=== PATIENT | male | born 1950 | race Caucasian/White ===

== ENCOUNTER 2020-04-12 11:33 | Inpatient (IN) ==
[2020-04-12] MEDS ORDERED: Simethicone 80 MG TAB.CHEW PO PRN (12:04)
[2020-04-12] MEDS ORDERED: polyethylene glycoL 3350 17 GM POWD.PACK PO PRN (12:04)
[2020-04-12] MEDS ORDERED: Dextrose Gel 15 GM/37.5 ML TUBE PO PRN ×2 (12:15)
[2020-04-12] MEDS ORDERED: *HR* Dextrose 50 % in Water (Vial) 50 ML VIAL IVP PRN (12:15)
[2020-04-12] MEDS ORDERED: D5% in Water 1,000 ML IVC PRN (12:15)
[2020-04-12] MEDS: *HR* Metformin 500 MG TABLET PO SCH (16:39)
[2020-04-12] MEDS: Insulin LISPRO 300 UNITS/3 ML VIAL SQ SCH (16:40)
[2020-04-13 07:25] LABS: BUN/Creatinine Ratio 20 (6-26); Blood Urea Nitrogen 18 mg/dL (8-23); Carbon Dioxide 32 mEq/L (23-29); Chloride 100 mEq/L (98-107); Glucose 133 mg/dL (70-105); Osmolality,Calculated 292 (280-300); Potassium 3.6 mEq/L (3.5-5.1); Sodium 139 mEq/L (136-145); eGFR For African Americans > 60 (> 60); eGFR For Non-African Americans > 60 (> 60)
[2020-04-13 07:26] LABS: Basophils # 0.1 K/mcL (0.0-0.2); Basophils % 0.7 %; Eosinophils # 0.3 K/mcL (0.0-0.6); Eosinophils % 2.8 %; Hematocrit 39.6 % (37.5-50.1); Hemoglobin 13.4 g/dL (12.9-16.9); Immature Granulocytes % 0.2 % (0-4); Lymphocytes # 2.2 K/mcL (0.6-4.6); Lymphocytes % 23.8 %; Mean Corpuscular HGB Conc 33.8 g/dL (31.6-35.5); Mean Corpuscular Hemoglobin 30.2 pg (28.0-33.3); Mean Corpuscular Volume 89.2 fL (83.0-100.0); Mean Platelet Volume 11.5 fL (9.4-12.4); Monocytes % 11.1 %; Neutrophils # 5.6 K/mcL (1.6-8.9); Platelet Count 279 K/mcL (140-400); Red Blood Count 4.44 M/mcL (4.19-5.50); Red Cell Distribution Width 12.5 % (11.5-14.5); Segmented Neutrophils % 61.4 %
[2020-04-13] MEDS: Insulin LISPRO 300 UNITS/3 ML VIAL SQ SCH ×3 (08:42→17:20)
[2020-04-13] MEDS: lisinopriL 5 MG TABLET PO SCH (08:44)
[2020-04-13] MEDS: Cholecalciferol (D-3) 1,000 UNIT (25MCG) TABLET PO SCH (08:44)
[2020-04-13] MEDS: Aspirin Enteric Coated 81 MG Tablet PO SCH (08:44)
[2020-04-13] MEDS: Multivit/Ca/Min/Fe/FA 1 TAB TABLET PO SCH (08:45)
[2020-04-13] MEDS: *HR* Glimepiride 2 MG TABLET PO SCH (08:45)
[2020-04-13] MEDS: *HR* Metformin 500 MG TABLET PO SCH ×2 (08:45→17:21)
[2020-04-14] MEDS: Insulin LISPRO 300 UNITS/3 ML VIAL SQ SCH ×3 (08:42→17:41)
[2020-04-14] MEDS: Multivit/Ca/Min/Fe/FA 1 TAB TABLET PO SCH (08:44)
[2020-04-14] MEDS: Cholecalciferol (D-3) 1,000 UNIT (25MCG) TABLET PO SCH (08:44)
[2020-04-14] MEDS: lisinopriL 5 MG TABLET PO SCH (08:44)
[2020-04-14] MEDS: *HR* Metformin 500 MG TABLET PO SCH ×2 (08:45→17:41)
[2020-04-14] MEDS: Aspirin Enteric Coated 81 MG Tablet PO SCH (08:45)
[2020-04-14] MEDS: *HR* Glimepiride 2 MG TABLET PO SCH (08:45)
[2020-04-15] MEDS: Insulin LISPRO 300 UNITS/3 ML VIAL SQ SCH ×3 (08:38→16:45)
[2020-04-15] MEDS: Aspirin Enteric Coated 81 MG Tablet PO SCH (08:40)
[2020-04-15] MEDS: *HR* Metformin 500 MG TABLET PO SCH ×2 (08:40→16:54)
[2020-04-15] MEDS: *HR* Glimepiride 2 MG TABLET PO SCH (08:41)
[2020-04-15] MEDS: lisinopriL 5 MG TABLET PO SCH (08:41)
[2020-04-15] MEDS: Cholecalciferol (D-3) 1,000 UNIT (25MCG) TABLET PO SCH (08:42)
[2020-04-15] MEDS: Multivit/Ca/Min/Fe/FA 1 TAB TABLET PO SCH ×2 (08:42→08:47)
[2020-04-16] MEDS: Insulin LISPRO 300 UNITS/3 ML VIAL SQ SCH ×3 (08:02→15:53)
[2020-04-16] MEDS: *HR* Glimepiride 2 MG TABLET PO SCH (08:54)
[2020-04-16] MEDS: *HR* Metformin 500 MG TABLET PO SCH ×2 (08:54→17:07)
[2020-04-16] MEDS: Cholecalciferol (D-3) 1,000 UNIT (25MCG) TABLET PO SCH (08:54)
[2020-04-16] MEDS: Multivit/Ca/Min/Fe/FA 1 TAB TABLET PO SCH (08:54)
[2020-04-16] MEDS: lisinopriL 5 MG TABLET PO SCH (08:54)
[2020-04-16] MEDS: Aspirin Enteric Coated 81 MG Tablet PO SCH (08:55)
[2020-04-17] MEDS: Aspirin Enteric Coated 81 MG Tablet PO SCH (08:36)
[2020-04-17] MEDS: Insulin LISPRO 300 UNITS/3 ML VIAL SQ SCH ×3 (08:36→16:19)
[2020-04-17] MEDS: Cholecalciferol (D-3) 1,000 UNIT (25MCG) TABLET PO SCH (08:36)
[2020-04-17] MEDS: Multivit/Ca/Min/Fe/FA 1 TAB TABLET PO SCH (08:37)
[2020-04-17] MEDS: lisinopriL 5 MG TABLET PO SCH (08:37)
[2020-04-17] MEDS: *HR* Glimepiride 2 MG TABLET PO SCH (08:37)
[2020-04-17] MEDS: *HR* Metformin 500 MG TABLET PO SCH ×2 (08:37→16:20)
[2020-04-18 06:29] LABS: Hematocrit 41.5 % (37.5-50.1); Hemoglobin 13.7 g/dL (12.9-16.9); Mean Corpuscular Hemoglobin 30.1 pg (28.0-33.3); Mean Corpuscular Volume 91.2 fL (83.0-100.0); Platelet Count 347 K/mcL (140-400); Red Blood Count 4.55 M/mcL (4.19-5.50); White Blood Count 9.2 K/mcL (4.3-11.1)
[2020-04-18 06:56] LABS: Alanine Aminotransferase 18 Units/L (7-52); Albumin 3.6 g/dL (3.5-5.7); Albumin/Globulin Ratio 1.2 (1.1-2.2); Alkaline Phosphatase 79 Units/L (34-104); Aspartate Amino Transferase 17 Units/L (13-39); BUN/Creatinine Ratio 28 (6-26); Bilirubin,Total 0.3 mg/dL (0.3-1.0); Blood Urea Nitrogen 28 mg/dL (8-23); Calcium 9.5 mg/dL (8.6-10.3); Carbon Dioxide 33 mEq/L (23-29); Chloride 101 mEq/L (98-107); Glucose 95 mg/dL (70-105); Magnesium 1.8 mg/dL (1.6-2.6); Osmolality,Calculated 293 (280-300); Potassium 4.1 mEq/L (3.5-5.1); Sodium 139 mEq/L (136-145); Total Protein 6.6 g/dL (6.4-8.9); eGFR For African Americans > 60 (> 60); eGFR For Non-African Americans > 60 (> 60)
[2020-04-18] MEDS: *HR* Metformin 500 MG TABLET PO SCH ×2 (08:52→16:57)
[2020-04-18] MEDS: Multivit/Ca/Min/Fe/FA 1 TAB TABLET PO SCH (08:52)
[2020-04-18] MEDS: Cholecalciferol (D-3) 1,000 UNIT (25MCG) TABLET PO SCH (08:52)
[2020-04-18] MEDS: Aspirin Enteric Coated 81 MG Tablet PO SCH (08:53)
[2020-04-18] MEDS: *HR* Glimepiride 2 MG TABLET PO SCH (08:53)
[2020-04-18] MEDS: lisinopriL 5 MG TABLET PO SCH (08:53)
[2020-04-18] MEDS: Insulin LISPRO 300 UNITS/3 ML VIAL SQ SCH ×3 (08:53→16:57)
[2020-04-19] MEDS: Insulin LISPRO 300 UNITS/3 ML VIAL SQ SCH ×3 (07:56→16:50)
[2020-04-19] MEDS: Multivit/Ca/Min/Fe/FA 1 TAB TABLET PO SCH (08:28)
[2020-04-19] MEDS: *HR* Glimepiride 2 MG TABLET PO SCH (08:28)
[2020-04-19] MEDS: Cholecalciferol (D-3) 1,000 UNIT (25MCG) TABLET PO SCH (08:28)
[2020-04-19] MEDS: *HR* Metformin 500 MG TABLET PO SCH ×2 (08:28→16:50)
[2020-04-19] MEDS: Aspirin Enteric Coated 81 MG Tablet PO SCH (08:28)
[2020-04-19] MEDS: lisinopriL 5 MG TABLET PO SCH (08:28)
[2020-04-20] MEDS: Insulin LISPRO 300 UNITS/3 ML VIAL SQ SCH ×3 (08:32→17:11)
[2020-04-20] MEDS: lisinopriL 5 MG TABLET PO SCH (08:33)
[2020-04-20] MEDS: Aspirin Enteric Coated 81 MG Tablet PO SCH (08:34)
[2020-04-20] MEDS: Cholecalciferol (D-3) 1,000 UNIT (25MCG) TABLET PO SCH (08:34)
[2020-04-20] MEDS: Multivit/Ca/Min/Fe/FA 1 TAB TABLET PO SCH (08:34)
[2020-04-20] MEDS: *HR* Glimepiride 2 MG TABLET PO SCH (08:34)
[2020-04-20] MEDS: *HR* Metformin 500 MG TABLET PO SCH ×2 (08:34→17:45)
[2020-04-21] MEDS: Insulin LISPRO 300 UNITS/3 ML VIAL SQ SCH ×3 (08:17→16:27)
[2020-04-21] MEDS: Aspirin Enteric Coated 81 MG Tablet PO SCH (08:17)
[2020-04-21] MEDS: Multivit/Ca/Min/Fe/FA 1 TAB TABLET PO SCH (08:17)
[2020-04-21] MEDS: *HR* Metformin 500 MG TABLET PO SCH ×2 (08:17→16:27)
[2020-04-21] MEDS: Cholecalciferol (D-3) 1,000 UNIT (25MCG) TABLET PO SCH (08:17)
[2020-04-21] MEDS: lisinopriL 5 MG TABLET PO SCH (08:17)
[2020-04-21] MEDS: *HR* Glimepiride 2 MG TABLET PO SCH (08:17)
[2020-04-22] MEDS: lisinopriL 5 MG TABLET PO SCH (08:24)
[2020-04-22] MEDS: *HR* Metformin 500 MG TABLET PO SCH ×2 (08:24→16:17)
[2020-04-22] MEDS: Aspirin Enteric Coated 81 MG Tablet PO SCH (08:25)
[2020-04-22] MEDS: Insulin LISPRO 300 UNITS/3 ML VIAL SQ SCH ×3 (08:25→16:18)
[2020-04-22] MEDS: Multivit/Ca/Min/Fe/FA 1 TAB TABLET PO SCH (08:25)
[2020-04-22] MEDS: *HR* Glimepiride 2 MG TABLET PO SCH (08:25)
[2020-04-22] MEDS: Cholecalciferol (D-3) 1,000 UNIT (25MCG) TABLET PO SCH (08:25)
[2020-04-23 07:20] LABS: Basophils # 0.1 K/mcL (0.0-0.2); Basophils % 0.9 %; Eosinophils # 0.2 K/mcL (0.0-0.6); Eosinophils % 2.3 %; Hematocrit 39.2 % (37.5-50.1); Hemoglobin 13.1 g/dL (12.9-16.9); Immature Granulocytes % 0.3 % (0-4); Lymphocytes # 2.5 K/mcL (0.6-4.6); Lymphocytes % 28.2 %; Mean Corpuscular HGB Conc 33.4 g/dL (31.6-35.5); Mean Corpuscular Hemoglobin 29.8 pg (28.0-33.3); Mean Corpuscular Volume 89.3 fL (83.0-100.0); Mean Platelet Volume 10.9 fL (9.4-12.4); Monocytes # 0.8 K/mcL (0.0-1.3); Monocytes % 9.1 %; Neutrophils # 5.2 K/mcL (1.6-8.9); Platelet Count 300 K/mcL (140-400); Red Blood Count 4.39 M/mcL (4.19-5.50); Red Cell Distribution Width 12.9 % (11.5-14.5); Segmented Neutrophils % 59.2 %; White Blood Count 8.8 K/mcL (4.3-11.1)
[2020-04-23 07:48] LABS: BUN/Creatinine Ratio 24 (6-26); Blood Urea Nitrogen 23 mg/dL (8-23); Calcium 9.1 mg/dL (8.6-10.3); Carbon Dioxide 30 mEq/L (23-29); Chloride 101 mEq/L (98-107); Glucose 86 mg/dL (70-105); Osmolality,Calculated 289 (280-300); Potassium 3.9 mEq/L (3.5-5.1); Sodium 138 mEq/L (136-145); eGFR For African Americans > 60 (> 60); eGFR For Non-African Americans > 60 (> 60)
[2020-04-23] MEDS: Insulin LISPRO 300 UNITS/3 ML VIAL SQ SCH ×3 (08:00→16:20)
[2020-04-23] MEDS: *HR* Metformin 500 MG TABLET PO SCH ×2 (08:01→16:20)
[2020-04-23] MEDS: Aspirin Enteric Coated 81 MG Tablet PO SCH (08:02)
[2020-04-23] MEDS: lisinopriL 5 MG TABLET PO SCH (08:02)
[2020-04-23] MEDS: Cholecalciferol (D-3) 1,000 UNIT (25MCG) TABLET PO SCH (08:02)
[2020-04-23] MEDS: *HR* Glimepiride 2 MG TABLET PO SCH (08:02)
[2020-04-23] MEDS: Multivit/Ca/Min/Fe/FA 1 TAB TABLET PO SCH (08:02)
[2020-04-24] MEDS: Multivit/Ca/Min/Fe/FA 1 TAB TABLET PO SCH (07:59)
[2020-04-24] MEDS: *HR* Metformin 500 MG TABLET PO SCH ×2 (07:59→16:56)
[2020-04-24] MEDS: *HR* Glimepiride 2 MG TABLET PO SCH (07:59)
[2020-04-24] MEDS: Cholecalciferol (D-3) 1,000 UNIT (25MCG) TABLET PO SCH (07:59)
[2020-04-24] MEDS: lisinopriL 5 MG TABLET PO SCH (07:59)
[2020-04-24] MEDS: Insulin LISPRO 300 UNITS/3 ML VIAL SQ SCH ×3 (08:00→16:46)
[2020-04-24] MEDS: Aspirin Enteric Coated 81 MG Tablet PO SCH (08:00)
[2020-04-25] MEDS: Insulin LISPRO 300 UNITS/3 ML VIAL SQ SCH ×3 (07:28→16:42)
[2020-04-25] MEDS: Aspirin Enteric Coated 81 MG Tablet PO SCH (09:53)
[2020-04-25] MEDS: Multivit/Ca/Min/Fe/FA 1 TAB TABLET PO SCH (09:53)
[2020-04-25] MEDS: lisinopriL 5 MG TABLET PO SCH (09:54)
[2020-04-25] MEDS: *HR* Glimepiride 2 MG TABLET PO SCH (09:54)
[2020-04-25] MEDS: Cholecalciferol (D-3) 1,000 UNIT (25MCG) TABLET PO SCH (09:54)
[2020-04-25] MEDS: *HR* Metformin 500 MG TABLET PO SCH ×2 (09:54→16:41)
[2020-04-26] MEDS: Insulin LISPRO 300 UNITS/3 ML VIAL SQ SCH ×3 (08:09→16:31)
[2020-04-26] MEDS: Aspirin Enteric Coated 81 MG Tablet PO SCH (08:10)
[2020-04-26] MEDS: *HR* Glimepiride 2 MG TABLET PO SCH (08:10)
[2020-04-26] MEDS: *HR* Metformin 500 MG TABLET PO SCH ×2 (08:10→16:33)
[2020-04-26] MEDS: Multivit/Ca/Min/Fe/FA 1 TAB TABLET PO SCH (08:10)
[2020-04-26] MEDS: Cholecalciferol (D-3) 1,000 UNIT (25MCG) TABLET PO SCH (08:10)
[2020-04-27] MEDS: Insulin LISPRO 300 UNITS/3 ML VIAL SQ SCH ×3 (08:41→16:14)
[2020-04-27] MEDS: *HR* Glimepiride 2 MG TABLET PO SCH (08:42)
[2020-04-27] MEDS: *HR* Metformin 500 MG TABLET PO SCH ×2 (08:43→16:15)
[2020-04-27] MEDS: Cholecalciferol (D-3) 1,000 UNIT (25MCG) TABLET PO SCH (08:43)
[2020-04-27] MEDS: Multivit/Ca/Min/Fe/FA 1 TAB TABLET PO SCH (08:43)
[2020-04-27] MEDS: Aspirin Enteric Coated 81 MG Tablet PO SCH (08:43)
[2020-04-27] MEDS: Furosemide 20 MG TABLET PO SCH (16:15)
[2020-04-27] MEDS: Doxycycline 100 MG CAPSULE PO SCH (20:09)
[2020-04-28 05:08] LABS: Basophils # 0.1 K/mcL (0.0-0.2); Basophils % 0.7 %; Eosinophils # 0.2 K/mcL (0.0-0.6); Eosinophils % 2.2 %; Hematocrit 38.7 % (37.5-50.1); Hemoglobin 12.7 g/dL (12.9-16.9); Immature Granulocytes % 0.2 % (0-4); Lymphocytes # 2.8 K/mcL (0.6-4.6); Lymphocytes % 33.7 %; Mean Corpuscular HGB Conc 32.8 g/dL (31.6-35.5); Mean Corpuscular Hemoglobin 29.5 pg (28.0-33.3); Mean Platelet Volume 11.1 fL (9.4-12.4); Monocytes # 0.8 K/mcL (0.0-1.3); Monocytes % 9.4 %; Neutrophils # 4.5 K/mcL (1.6-8.9); Platelet Count 306 K/mcL (140-400); Red Cell Distribution Width 13.2 % (11.5-14.5); Segmented Neutrophils % 53.8 %; White Blood Count 8.3 K/mcL (4.3-11.1)
[2020-04-28 06:06] LABS: BUN/Creatinine Ratio 19 (6-26); Blood Urea Nitrogen 19 mg/dL (8-23); Calcium 9.3 mg/dL (8.6-10.3); Carbon Dioxide 31 mEq/L (23-29); Chloride 100 mEq/L (98-107); Glucose 92 mg/dL (70-105); Osmolality,Calculated 288 (280-300); Potassium 3.8 mEq/L (3.5-5.1); Sodium 138 mEq/L (136-145); eGFR For African Americans > 60 (> 60); eGFR For Non-African Americans > 60 (> 60)
[2020-04-28] MEDS: Aspirin Enteric Coated 81 MG Tablet PO SCH (08:16)
[2020-04-28] MEDS: Multivit/Ca/Min/Fe/FA 1 TAB TABLET PO SCH (08:16)
[2020-04-28] MEDS: Furosemide 20 MG TABLET PO SCH (08:16)
[2020-04-28] MEDS: Doxycycline 100 MG CAPSULE PO SCH ×2 (08:16→20:16)
[2020-04-28] MEDS: *HR* Glimepiride 2 MG TABLET PO SCH (08:16)
[2020-04-28] MEDS: *HR* Metformin 500 MG TABLET PO SCH ×2 (08:16→16:31)
[2020-04-28] MEDS: Cholecalciferol (D-3) 1,000 UNIT (25MCG) TABLET PO SCH (08:16)
[2020-04-28] MEDS: Insulin LISPRO 300 UNITS/3 ML VIAL SQ SCH ×3 (08:17→16:31)
[2020-04-29] MEDS: Insulin LISPRO 300 UNITS/3 ML VIAL SQ SCH ×3 (07:31→16:27)
[2020-04-29] MEDS: Multivit/Ca/Min/Fe/FA 1 TAB TABLET PO SCH (07:35)
[2020-04-29] MEDS: Doxycycline 100 MG CAPSULE PO SCH ×2 (07:36→20:38)
[2020-04-29] MEDS: Furosemide 20 MG TABLET PO SCH (07:36)
[2020-04-29] MEDS: Cholecalciferol (D-3) 1,000 UNIT (25MCG) TABLET PO SCH (07:36)
[2020-04-29] MEDS: Aspirin Enteric Coated 81 MG Tablet PO SCH (07:36)
[2020-04-29] MEDS: *HR* Metformin 500 MG TABLET PO SCH ×2 (07:36→16:31)
[2020-04-29] MEDS: *HR* Glimepiride 2 MG TABLET PO SCH (07:36)
[2020-04-30] MEDS: Cholecalciferol (D-3) 1,000 UNIT (25MCG) TABLET PO SCH (09:02)
[2020-04-30] MEDS: *HR* Metformin 500 MG TABLET PO SCH ×2 (09:02→16:27)
[2020-04-30] MEDS: *HR* Glimepiride 2 MG TABLET PO SCH (09:02)
[2020-04-30] MEDS: Doxycycline 100 MG CAPSULE PO SCH ×2 (09:02→21:07)
[2020-04-30] MEDS: Multivit/Ca/Min/Fe/FA 1 TAB TABLET PO SCH (09:02)
[2020-04-30] MEDS: Aspirin Enteric Coated 81 MG Tablet PO SCH (09:02)
[2020-04-30] MEDS: Insulin LISPRO 300 UNITS/3 ML VIAL SQ SCH ×3 (09:03→16:27)
[2020-04-30] MEDS: Furosemide 20 MG TABLET PO SCH (09:08)
[2020-05-01] MEDS: *HR* Metformin 500 MG TABLET PO SCH ×2 (08:27→16:15)
[2020-05-01] MEDS: Furosemide 20 MG TABLET PO SCH (08:27)
[2020-05-01] MEDS: Doxycycline 100 MG CAPSULE PO SCH ×2 (08:27→19:52)
[2020-05-01] MEDS: *HR* Glimepiride 2 MG TABLET PO SCH (08:27)
[2020-05-01] MEDS: Aspirin Enteric Coated 81 MG Tablet PO SCH (08:27)
[2020-05-01] MEDS: Insulin LISPRO 300 UNITS/3 ML VIAL SQ SCH ×3 (08:27→16:15)
[2020-05-01] MEDS: Cholecalciferol (D-3) 1,000 UNIT (25MCG) TABLET PO SCH (08:27)
[2020-05-01] MEDS: Multivit/Ca/Min/Fe/FA 1 TAB TABLET PO SCH (08:27)
[2020-05-02] MEDS: Insulin LISPRO 300 UNITS/3 ML VIAL SQ SCH ×3 (08:33→16:20)
[2020-05-02] MEDS: Furosemide 20 MG TABLET PO SCH (08:34)
[2020-05-02] MEDS: Cholecalciferol (D-3) 1,000 UNIT (25MCG) TABLET PO SCH (08:34)
[2020-05-02] MEDS: *HR* Glimepiride 2 MG TABLET PO SCH (08:34)
[2020-05-02] MEDS: Doxycycline 100 MG CAPSULE PO SCH ×2 (08:35→20:02)
[2020-05-02] MEDS: *HR* Metformin 500 MG TABLET PO SCH ×2 (08:35→16:20)
[2020-05-02] MEDS: Aspirin Enteric Coated 81 MG Tablet PO SCH (08:35)
[2020-05-02] MEDS: Multivit/Ca/Min/Fe/FA 1 TAB TABLET PO SCH (08:35)
[2020-05-03] MEDS: Insulin LISPRO 300 UNITS/3 ML VIAL SQ SCH ×3 (07:14→16:07)
[2020-05-03] MEDS: Multivit/Ca/Min/Fe/FA 1 TAB TABLET PO SCH (08:16)
[2020-05-03] MEDS: *HR* Metformin 500 MG TABLET PO SCH ×2 (08:16→16:07)
[2020-05-03] MEDS: Doxycycline 100 MG CAPSULE PO SCH ×2 (08:16→20:57)
[2020-05-03] MEDS: Cholecalciferol (D-3) 1,000 UNIT (25MCG) TABLET PO SCH (08:16)
[2020-05-03] MEDS: Aspirin Enteric Coated 81 MG Tablet PO SCH (08:16)
[2020-05-03] MEDS: *HR* Glimepiride 2 MG TABLET PO SCH (08:16)
[2020-05-04] MEDS: *HR* Metformin 500 MG TABLET PO SCH ×2 (08:42→16:25)
[2020-05-04] MEDS: *HR* Glimepiride 2 MG TABLET PO SCH (08:42)
[2020-05-04] MEDS: Multivit/Ca/Min/Fe/FA 1 TAB TABLET PO SCH (08:42)
[2020-05-04] MEDS: Cholecalciferol (D-3) 1,000 UNIT (25MCG) TABLET PO SCH (08:42)
[2020-05-04] MEDS: Doxycycline 100 MG CAPSULE PO SCH ×2 (08:42→20:04)
[2020-05-04] MEDS: Aspirin Enteric Coated 81 MG Tablet PO SCH (08:42)
[2020-05-04] MEDS: Insulin LISPRO 300 UNITS/3 ML VIAL SQ SCH ×3 (08:43→16:25)
[2020-05-05] MEDS: Insulin LISPRO 300 UNITS/3 ML VIAL SQ SCH ×3 (07:28→16:57)
[2020-05-05 08:27] LABS: Basophils # 0.1 K/mcL (0.0-0.2); Basophils % 0.7 %; Eosinophils # 0.3 K/mcL (0.0-0.6); Eosinophils % 3.9 %; Hematocrit 39.3 % (37.5-50.1); Immature Granulocytes % 0.1 % (0-4); Lymphocytes # 2.1 K/mcL (0.6-4.6); Lymphocytes % 27.7 %; Mean Corpuscular HGB Conc 33.1 g/dL (31.6-35.5); Mean Corpuscular Hemoglobin 29.6 pg (28.0-33.3); Mean Corpuscular Volume 89.5 fL (83.0-100.0); Mean Platelet Volume 10.9 fL (9.4-12.4); Monocytes # 0.8 K/mcL (0.0-1.3); Monocytes % 11.1 %; Neutrophils # 4.2 K/mcL (1.6-8.9); Platelet Count 240 K/mcL (140-400); Red Blood Count 4.39 M/mcL (4.19-5.50); Red Cell Distribution Width 13.2 % (11.5-14.5); Segmented Neutrophils % 56.5 %; White Blood Count 7.5 K/mcL (4.3-11.1)
[2020-05-05 08:47] LABS: BUN/Creatinine Ratio 20 (6-26); Blood Urea Nitrogen 20 mg/dL (8-23); Calcium 9.3 mg/dL (8.6-10.3); Carbon Dioxide 30 mEq/L (23-29); Chloride 101 mEq/L (98-107); Glucose 88 mg/dL (70-105); Osmolality,Calculated 288 (280-300); Potassium 3.9 mEq/L (3.5-5.1); Sodium 138 mEq/L (136-145); eGFR For African Americans > 60 (> 60); eGFR For Non-African Americans > 60 (> 60)
[2020-05-05] MEDS: Cholecalciferol (D-3) 1,000 UNIT (25MCG) TABLET PO SCH (09:01)
[2020-05-05] MEDS: Aspirin Enteric Coated 81 MG Tablet PO SCH (09:01)
[2020-05-05] MEDS: *HR* Metformin 500 MG TABLET PO SCH ×2 (09:02→16:57)
[2020-05-05] MEDS: *HR* Glimepiride 2 MG TABLET PO SCH (09:02)
[2020-05-05] MEDS: Multivit/Ca/Min/Fe/FA 1 TAB TABLET PO SCH (09:02)
[2020-05-06] MEDS: Insulin LISPRO 300 UNITS/3 ML VIAL SQ SCH ×3 (07:22→16:14)
[2020-05-06] MEDS: Aspirin Enteric Coated 81 MG Tablet PO SCH (07:49)
[2020-05-06] MEDS: *HR* Glimepiride 2 MG TABLET PO SCH (07:49)
[2020-05-06] MEDS: Multivit/Ca/Min/Fe/FA 1 TAB TABLET PO SCH (07:49)
[2020-05-06] MEDS: *HR* Metformin 500 MG TABLET PO SCH ×2 (07:49→16:25)
[2020-05-06] MEDS: Cholecalciferol (D-3) 1,000 UNIT (25MCG) TABLET PO SCH (07:49)
[2020-05-07 07:39] VITALS: BP 121/78
[2020-05-07] MEDS: Multivit/Ca/Min/Fe/FA 1 TAB TABLET PO SCH (08:07)
[2020-05-07] MEDS: *HR* Metformin 500 MG TABLET PO SCH (08:07)
[2020-05-07] MEDS: Aspirin Enteric Coated 81 MG Tablet PO SCH (08:07)
[2020-05-07] MEDS: Cholecalciferol (D-3) 1,000 UNIT (25MCG) TABLET PO SCH (08:07)
[2020-05-07] MEDS: *HR* Glimepiride 2 MG TABLET PO SCH (08:07)
[2020-05-07] MEDS: Insulin LISPRO 300 UNITS/3 ML VIAL SQ SCH ×2 (08:07→11:58)
== END 2020-05-07 14:44 | disposition home health service (06) | DRG 945 ==
LOC: INPPIK 11:40
PROVIDERS: ADMIT Family Medicine; ATTEND Family Medicine

== ENCOUNTER 2021-05-24 16:29 | Inpatient (IN) ==
[2021-05-24] MEDS ORDERED: Dextrose Gel 15 GM/37.5 ML TUBE PO PRN ×2 (16:31)
[2021-05-24] MEDS ORDERED: *HR* Dextrose 50 % in Water (Syg) 50 ML SYRINGE IVP PRN (16:31)
[2021-05-24] MEDS ORDERED: D5% in Water 1,000 ML IVC PRN (16:31)
[2021-05-24] MEDS: Insulin LISPRO 300 UNITS/3 ML VIAL SUBQ SCH (20:58)
[2021-05-25 07:20] LABS: Basophils # 0.1 K/mcL (0.0-0.2); Basophils % 0.9 %; Eosinophils # 0.3 K/mcL (0.0-0.6); Eosinophils % 4.1 %; Hematocrit 35.6 % (37.5-50.1); Hemoglobin 11.1 g/dL (12.9-16.9); Immature Granulocytes % 0.3 % (0-4); Lymphocytes # 1.3 K/mcL (0.6-4.6); Lymphocytes % 18.9 %; Mean Corpuscular HGB Conc 31.2 g/dL (31.6-35.5); Mean Corpuscular Hemoglobin 28.1 pg (28.0-33.3); Mean Corpuscular Volume 90.1 fL (83.0-100.0); Mean Platelet Volume 10.1 fL (9.4-12.4); Monocytes # 0.8 K/mcL (0.0-1.3); Monocytes % 11.5 %; Neutrophils # 4.4 K/mcL (1.6-8.9); Platelet Count 368 K/mcL (140-400); Red Blood Count 3.95 M/mcL (4.19-5.50); Segmented Neutrophils % 64.3 %; White Blood Count 6.8 K/mcL (4.3-11.1)
[2021-05-25 07:47] LABS: BUN/Creatinine Ratio 28 (6-26); Blood Urea Nitrogen 22 mg/dL (8-23); Calcium 9.1 mg/dL (8.6-10.3); Carbon Dioxide 31 mEq/L (23-29); Chloride 98 mEq/L (98-107); Glucose 133 mg/dL (70-105); Osmolality,Calculated 285 (280-300); Sodium 135 mEq/L (136-145); eGFR For African Americans > 60 (> 60); eGFR For Non-African Americans > 60 (> 60)
[2021-05-25] MEDS ORDERED: *HR* Metformin 500 MG TABLET PO SCH (08:00)
[2021-05-25] MEDS: Insulin LISPRO 300 UNITS/3 ML VIAL SUBQ SCH ×4 (08:49→21:29)
[2021-05-25] MEDS: *HR* Metformin 500 MG TABLET PO SCH ×2 (08:50→17:20)
[2021-05-25] MEDS: Aspirin Enteric Coated 81 MG Tablet PO SCH (08:50)
[2021-05-25 13:05] LABS: Bilirubin,Urine Negative (Negative); Blood,Urine Moderate (Negative); Clarity,Urine Clear (Clear); Color,Urine Yellow (Yellow); Glucose,Urine (UA) >=1000 mg/dL (Normal); Ketones,Urine Negative (Negative); Leukocyte Esterase,Urine Trace (Negative); Nitrite,Urine Negative (Negative); Protein,Urine >=300 mg/dL (Neg-Trace); Specific Gravity,Urine >= 1.030 (1.010-1.025); Urobilinogen,Urine Normal (Normal)
[2021-05-26] MEDS: Aspirin Enteric Coated 81 MG Tablet PO SCH (08:47)
[2021-05-26] MEDS: *HR* Metformin 500 MG TABLET PO SCH ×2 (08:48→16:31)
[2021-05-26] MEDS: Insulin LISPRO 300 UNITS/3 ML VIAL SUBQ SCH ×4 (08:48→19:58)
[2021-05-27] MEDS: Insulin LISPRO 300 UNITS/3 ML VIAL SUBQ SCH ×4 (09:02→20:21)
[2021-05-27] MEDS: Aspirin Enteric Coated 81 MG Tablet PO SCH (09:03)
[2021-05-27] MEDS: *HR* Metformin 500 MG TABLET PO SCH ×2 (09:03→16:45)
[2021-05-27] MEDS: Sulfamethoxazole/Trimeth DS 1 EACH TABLET PO SCH ×2 (12:16→20:19)
[2021-05-28] MEDS: Insulin LISPRO 300 UNITS/3 ML VIAL SUBQ SCH ×4 (07:44→21:58)
[2021-05-28] MEDS: *HR* Metformin 500 MG TABLET PO SCH ×2 (08:11→17:06)
[2021-05-28] MEDS: Sulfamethoxazole/Trimeth DS 1 EACH TABLET PO SCH ×2 (08:11→20:56)
[2021-05-28] MEDS: Aspirin Enteric Coated 81 MG Tablet PO SCH (08:11)
[2021-05-28] MEDS: Sennosides/Docusate Sodium TABLET PO SCH (20:55)
[2021-05-29] MEDS: Insulin LISPRO 300 UNITS/3 ML VIAL SUBQ SCH ×4 (07:20→20:46)
[2021-05-29] MEDS: Sennosides/Docusate Sodium TABLET PO SCH ×2 (08:57→20:44)
[2021-05-29] MEDS: *HR* Metformin 500 MG TABLET PO SCH ×2 (08:57→17:19)
[2021-05-29] MEDS: Aspirin Enteric Coated 81 MG Tablet PO SCH (08:57)
[2021-05-29] MEDS: Sulfamethoxazole/Trimeth DS 1 EACH TABLET PO SCH ×2 (08:57→20:40)
[2021-05-30] MEDS: Insulin LISPRO 300 UNITS/3 ML VIAL SUBQ SCH ×4 (07:39→21:39)
[2021-05-30] MEDS: Sulfamethoxazole/Trimeth DS 1 EACH TABLET PO SCH ×2 (07:40→21:39)
[2021-05-30] MEDS: Aspirin Enteric Coated 81 MG Tablet PO SCH (07:40)
[2021-05-30] MEDS: Sennosides/Docusate Sodium TABLET PO SCH ×2 (07:40→21:39)
[2021-05-30] MEDS: *HR* Metformin 500 MG TABLET PO SCH ×2 (07:40→17:27)
[2021-05-30] MEDS: polyethylene glycoL 3350 17 GM POWD.PACK PO SCH (07:41)
[2021-05-31] MEDS: Acetaminophen 325 MG TABLET PO PRN (02:08)
[2021-05-31 06:58] LABS: Basophils # 0.1 K/mcL (0.0-0.2); Basophils % 0.5 %; Eosinophils % 0.3 %; Hemoglobin 10.7 g/dL (12.9-16.9); Immature Granulocytes % 0.4 % (0-4); Lymphocytes # 1.6 K/mcL (0.6-4.6); Lymphocytes % 12.6 %; Mean Corpuscular HGB Conc 32.4 g/dL (31.6-35.5); Mean Corpuscular Hemoglobin 28.5 pg (28.0-33.3); Mean Platelet Volume 10.3 fL (9.4-12.4); Monocytes # 0.9 K/mcL (0.0-1.3); Monocytes % 7.2 %; Neutrophils # 10.1 K/mcL (1.6-8.9); Platelet Count 439 K/mcL (140-400); Red Blood Count 3.75 M/mcL (4.19-5.50); Red Cell Distribution Width 17.2 % (11.5-14.5); White Blood Count 12.8 K/mcL (4.3-11.1)
[2021-05-31 07:07] LABS: BUN/Creatinine Ratio 22 (6-26); Blood Urea Nitrogen 26 mg/dL (8-23); Calcium 9.6 mg/dL (8.6-10.3); Carbon Dioxide 30 mEq/L (23-29); Chloride 97 mEq/L (98-107); Glucose 110 mg/dL (70-105); Osmolality,Calculated 283 (280-300); Potassium 4.1 mEq/L (3.5-5.1); Sodium 134 mEq/L (136-145); eGFR For African Americans > 60 (> 60); eGFR For Non-African Americans > 60 (> 60)
[2021-05-31] MEDS: polyethylene glycoL 3350 17 GM POWD.PACK PO SCH (10:00)
[2021-05-31] MEDS: Sennosides/Docusate Sodium TABLET PO SCH ×2 (10:00→21:49)
[2021-05-31] MEDS: *HR* Metformin 500 MG TABLET PO SCH ×2 (10:00→17:47)
[2021-05-31] MEDS: Sulfamethoxazole/Trimeth DS 1 EACH TABLET PO SCH ×2 (10:00→21:49)
[2021-05-31] MEDS: Aspirin Enteric Coated 81 MG Tablet PO SCH (10:00)
[2021-05-31] MEDS: Insulin LISPRO 300 UNITS/3 ML VIAL SUBQ SCH ×4 (11:01→21:50)
[2021-06-01] MEDS: Insulin LISPRO 300 UNITS/3 ML VIAL SUBQ SCH ×4 (07:53→20:28)
[2021-06-01] MEDS: *HR* Metformin 500 MG TABLET PO SCH ×2 (09:49→16:52)
[2021-06-01] MEDS: polyethylene glycoL 3350 17 GM POWD.PACK PO SCH (09:49)
[2021-06-01] MEDS: Aspirin Enteric Coated 81 MG Tablet PO SCH (09:49)
[2021-06-01] MEDS: Sulfamethoxazole/Trimeth DS 1 EACH TABLET PO SCH ×2 (09:50→21:50)
[2021-06-01] MEDS: Sennosides/Docusate Sodium TABLET PO SCH ×2 (09:59→21:51)
[2021-06-01] MEDS: Acetaminophen 325 MG TABLET PO PRN ×2 (09:59→21:50)
[2021-06-02] MEDS: Insulin LISPRO 300 UNITS/3 ML VIAL SUBQ SCH ×4 (08:28→20:32)
[2021-06-02] MEDS: polyethylene glycoL 3350 17 GM POWD.PACK PO SCH (10:02)
[2021-06-02] MEDS: Aspirin Enteric Coated 81 MG Tablet PO SCH (10:02)
[2021-06-02] MEDS: *HR* Metformin 500 MG TABLET PO SCH ×2 (10:03→17:09)
[2021-06-02] MEDS: Sulfamethoxazole/Trimeth DS 1 EACH TABLET PO SCH ×2 (10:03→20:31)
[2021-06-02] MEDS: Sennosides/Docusate Sodium TABLET PO SCH ×2 (10:25→20:31)
[2021-06-02] MEDS: Acetaminophen 325 MG TABLET PO PRN (17:09)
[2021-06-02] MEDS: Neosporin OINT 15 GM TUBE TP SCH (20:48)
[2021-06-03] MEDS: Insulin LISPRO 300 UNITS/3 ML VIAL SUBQ SCH ×4 (07:29→22:17)
[2021-06-03] MEDS ORDERED: Bisacodyl 10 MG RECTAL SUPPOSITORY RC PRN (09:00)
[2021-06-03] MEDS: *HR* Metformin 500 MG TABLET PO SCH ×2 (09:18→17:14)
[2021-06-03] MEDS: Sennosides/Docusate Sodium TABLET PO SCH ×2 (09:18→22:18)
[2021-06-03] MEDS: Aspirin Enteric Coated 81 MG Tablet PO SCH (09:18)
[2021-06-03] MEDS: Sulfamethoxazole/Trimeth DS 1 EACH TABLET PO SCH (09:18)
[2021-06-03] MEDS: polyethylene glycoL 3350 17 GM POWD.PACK PO SCH (09:19)
[2021-06-03] MEDS: Neosporin OINT 15 GM TUBE TP SCH ×2 (09:48→22:18)
[2021-06-04] MEDS: Insulin LISPRO 300 UNITS/3 ML VIAL SUBQ SCH ×4 (07:22→21:21)
[2021-06-04] MEDS: Aspirin Enteric Coated 81 MG Tablet PO SCH (09:02)
[2021-06-04] MEDS: *HR* Metformin 500 MG TABLET PO SCH ×2 (09:03→17:17)
[2021-06-04] MEDS: Sennosides/Docusate Sodium TABLET PO SCH ×2 (09:03→21:22)
[2021-06-04] MEDS: Neosporin OINT 15 GM TUBE TP SCH ×2 (09:08→21:24)
[2021-06-05] MEDS: Insulin LISPRO 300 UNITS/3 ML VIAL SUBQ SCH ×4 (07:17→20:42)
[2021-06-05] MEDS: Sennosides/Docusate Sodium TABLET PO SCH ×2 (09:04→20:18)
[2021-06-05] MEDS: *HR* Metformin 500 MG TABLET PO SCH ×2 (09:04→16:58)
[2021-06-05] MEDS: Aspirin Enteric Coated 81 MG Tablet PO SCH (09:04)
[2021-06-05] MEDS: Neosporin OINT 15 GM TUBE TP SCH ×2 (09:05→20:44)
[2021-06-06] MEDS: Insulin LISPRO 300 UNITS/3 ML VIAL SUBQ SCH ×4 (07:35→21:09)
[2021-06-06] MEDS: Aspirin Enteric Coated 81 MG Tablet PO SCH (07:53)
[2021-06-06] MEDS: *HR* Metformin 500 MG TABLET PO SCH ×2 (07:54→16:56)
[2021-06-06] MEDS: Sennosides/Docusate Sodium TABLET PO SCH ×2 (07:54→21:08)
[2021-06-06] MEDS: Neosporin OINT 15 GM TUBE TP SCH ×2 (07:55→21:13)
[2021-06-07] MEDS: Insulin LISPRO 300 UNITS/3 ML VIAL SUBQ SCH ×4 (07:46→20:18)
[2021-06-07] MEDS: Aspirin Enteric Coated 81 MG Tablet PO SCH (07:53)
[2021-06-07] MEDS: Sennosides/Docusate Sodium TABLET PO SCH ×2 (07:53→20:20)
[2021-06-07] MEDS: *HR* Metformin 500 MG TABLET PO SCH ×2 (07:53→16:28)
[2021-06-07] MEDS: Neosporin OINT 15 GM TUBE TP SCH ×2 (08:04→20:20)
[2021-06-07 08:18] LABS: Hematocrit 33.6 % (37.5-50.1); Hemoglobin 10.8 g/dL (12.9-16.9); Mean Corpuscular HGB Conc 32.1 g/dL (31.6-35.5); Mean Corpuscular Hemoglobin 28.2 pg (28.0-33.3); Mean Corpuscular Volume 87.7 fL (83.0-100.0); Mean Platelet Volume 9.7 fL (9.4-12.4); Platelet Count 343 K/mcL (140-400); Red Blood Count 3.83 M/mcL (4.19-5.50); Red Cell Distribution Width 16.1 % (11.5-14.5); White Blood Count 9.2 K/mcL (4.3-11.1)
[2021-06-07 08:43] LABS: BUN/Creatinine Ratio 29 (6-26); Blood Urea Nitrogen 23 mg/dL (8-23); Calcium 9.6 mg/dL (8.6-10.3); Carbon Dioxide 30 mEq/L (23-29); Chloride 96 mEq/L (98-107); Glucose 125 mg/dL (70-105); Osmolality,Calculated 283 (280-300); Potassium 4.1 mEq/L (3.5-5.1); Sodium 134 mEq/L (136-145); eGFR For African Americans > 60 (> 60); eGFR For Non-African Americans > 60 (> 60)
[2021-06-08] MEDS: Insulin LISPRO 300 UNITS/3 ML VIAL SUBQ SCH ×4 (08:00→20:12)
[2021-06-08] MEDS: Aspirin Enteric Coated 81 MG Tablet PO SCH (08:11)
[2021-06-08] MEDS: Neosporin OINT 15 GM TUBE TP SCH ×2 (08:11→20:14)
[2021-06-08] MEDS: *HR* Metformin 500 MG TABLET PO SCH ×2 (08:11→16:16)
[2021-06-08] MEDS: Sennosides/Docusate Sodium TABLET PO SCH (20:14)
[2021-06-09] MEDS: Insulin LISPRO 300 UNITS/3 ML VIAL SUBQ SCH ×4 (08:07→20:55)
[2021-06-09] MEDS: Aspirin Enteric Coated 81 MG Tablet PO SCH (08:10)
[2021-06-09] MEDS: *HR* Metformin 500 MG TABLET PO SCH ×2 (08:10→16:06)
[2021-06-09] MEDS: Neosporin OINT 15 GM TUBE TP SCH ×2 (08:18→21:45)
[2021-06-09] MEDS: Sennosides/Docusate Sodium TABLET PO SCH (21:25)
[2021-06-10] MEDS: Neosporin OINT 15 GM TUBE TP SCH ×3 (01:42→21:00)
[2021-06-10] MEDS: Insulin LISPRO 300 UNITS/3 ML VIAL SUBQ SCH ×4 (08:05→21:49)
[2021-06-10] MEDS: Aspirin Enteric Coated 81 MG Tablet PO SCH (08:12)
[2021-06-10] MEDS: *HR* Metformin 500 MG TABLET PO SCH ×2 (08:13→16:29)
[2021-06-10] MEDS: Sennosides/Docusate Sodium TABLET PO SCH (22:24)
[2021-06-11] MEDS: Insulin LISPRO 300 UNITS/3 ML VIAL SUBQ SCH ×3 (07:43→18:01)
[2021-06-11] MEDS: Aspirin Enteric Coated 81 MG Tablet PO SCH (08:54)
[2021-06-11] MEDS: *HR* Metformin 500 MG TABLET PO SCH ×2 (08:55→17:59)
[2021-06-11] MEDS: Neosporin OINT 15 GM TUBE TP SCH ×2 (08:57→19:50)
[2021-06-11] MEDS ORDERED: Insulin LISPRO 300 UNITS/3 ML VIAL SUBQ SCH (16:30)
[2021-06-11] MEDS: Sennosides/Docusate Sodium TABLET PO SCH (19:38)
[2021-06-12] MEDS: Insulin LISPRO 300 UNITS/3 ML VIAL SUBQ SCH ×5 (05:59→21:30)
[2021-06-12] MEDS: Aspirin Enteric Coated 81 MG Tablet PO SCH (09:05)
[2021-06-12] MEDS: Neosporin OINT 15 GM TUBE TP SCH ×2 (09:06→23:22)
[2021-06-12] MEDS: *HR* Metformin 500 MG TABLET PO SCH ×2 (09:06→18:04)
[2021-06-12] MEDS: Sennosides/Docusate Sodium TABLET PO SCH (21:29)
[2021-06-13] MEDS: Insulin LISPRO 300 UNITS/3 ML VIAL SUBQ SCH ×4 (07:36→20:21)
[2021-06-13] MEDS: *HR* Metformin 500 MG TABLET PO SCH ×2 (09:36→16:20)
[2021-06-13] MEDS: Aspirin Enteric Coated 81 MG Tablet PO SCH (09:36)
[2021-06-13] MEDS: Neosporin OINT 15 GM TUBE TP SCH ×2 (09:54→20:24)
[2021-06-13 17:24] LABS: Bilirubin,Urine Negative (Negative); Blood,Urine Trace-intact (Negative); Clarity,Urine Cloudy (Clear); Color,Urine Yellow (Yellow); Glucose,Urine (UA) Normal (Normal); Ketones,Urine Trace mg/dL (Negative); Leukocyte Esterase,Urine Large (Negative); Nitrite,Urine Negative (Negative); PH,Urine 8.5 pH Units (5.0-8.0); Protein,Urine 100 mg/dL (Neg-Trace); Urobilinogen,Urine Normal (Normal)
[2021-06-13 17:32] LABS: Bacteria,Urine Many per hpf (None-Few); RBC,Urine 0-3 per hpf (0-3); Squamous Epithelial Cell,Urine Few per hpf (None-Few); WBC,Urine TNTC per hpf (0-3)
[2021-06-13] MEDS: Sennosides/Docusate Sodium TABLET PO SCH (20:23)
[2021-06-13 22:36] LABS: Chlamydia Trachomatis DNA Ur NOT DETECTED (Not Detect)
[2021-06-14] MEDS: *HR* Metformin 500 MG TABLET PO SCH ×2 (08:34→16:34)
[2021-06-14] MEDS: Aspirin Enteric Coated 81 MG Tablet PO SCH (08:34)
[2021-06-14] MEDS: Insulin LISPRO 300 UNITS/3 ML VIAL SUBQ SCH ×4 (08:35→20:58)
[2021-06-14] MEDS: Neosporin OINT 15 GM TUBE TP SCH ×2 (08:36→21:08)
[2021-06-14] MEDS: levoFLOXacin 500 MG TABLET PO SCH (16:35)
[2021-06-14] MEDS: Sennosides/Docusate Sodium TABLET PO SCH (21:08)
[2021-06-15] MEDS: Insulin LISPRO 300 UNITS/3 ML VIAL SUBQ SCH ×4 (08:25→22:09)
[2021-06-15] MEDS: Aspirin Enteric Coated 81 MG Tablet PO SCH (09:16)
[2021-06-15] MEDS: Neosporin OINT 15 GM TUBE TP SCH ×2 (09:16→22:10)
[2021-06-15] MEDS: *HR* Metformin 500 MG TABLET PO SCH ×2 (09:16→18:03)
[2021-06-15] MEDS: levoFLOXacin 500 MG TABLET PO SCH (18:03)
[2021-06-15] MEDS: Sennosides/Docusate Sodium TABLET PO SCH (22:08)
[2021-06-16] MEDS: Insulin LISPRO 300 UNITS/3 ML VIAL SUBQ SCH ×4 (09:32→21:47)
[2021-06-16] MEDS: *HR* Metformin 500 MG TABLET PO SCH ×2 (09:55→18:00)
[2021-06-16] MEDS: Aspirin Enteric Coated 81 MG Tablet PO SCH (09:55)
[2021-06-16] MEDS: Neosporin OINT 15 GM TUBE TP SCH ×2 (15:03→21:57)
[2021-06-16] MEDS: levoFLOXacin 500 MG TABLET PO SCH (18:00)
[2021-06-16] MEDS: Sennosides/Docusate Sodium TABLET PO SCH (21:56)
[2021-06-17] MEDS: Insulin LISPRO 300 UNITS/3 ML VIAL SUBQ SCH ×4 (08:14→20:28)
[2021-06-17] MEDS: Neosporin OINT 15 GM TUBE TP SCH ×2 (08:18→20:41)
[2021-06-17] MEDS: Aspirin Enteric Coated 81 MG Tablet PO SCH (08:18)
[2021-06-17] MEDS: *HR* Metformin 500 MG TABLET PO SCH ×2 (08:18→16:39)
[2021-06-17] MEDS: levoFLOXacin 500 MG TABLET PO SCH (16:39)
[2021-06-17] MEDS: Sennosides/Docusate Sodium TABLET PO SCH (20:26)
[2021-06-18] MEDS: Insulin LISPRO 300 UNITS/3 ML VIAL SUBQ SCH ×4 (09:38→20:39)
[2021-06-18] MEDS: *HR* Metformin 500 MG TABLET PO SCH ×2 (09:40→16:44)
[2021-06-18] MEDS: Aspirin Enteric Coated 81 MG Tablet PO SCH (09:40)
[2021-06-18] MEDS: Neosporin OINT 15 GM TUBE TP SCH ×2 (09:41→20:42)
[2021-06-18] MEDS: levoFLOXacin 500 MG TABLET PO SCH (16:44)
[2021-06-18 20:12] VITALS: RESP 18
[2021-06-18] MEDS: Sennosides/Docusate Sodium TABLET PO SCH (20:35)
[2021-06-19 07:01] VITALS: BP 91/48; PULSE 91; TEMP 97.9; O2SAT 96
[2021-06-19] MEDS: Insulin LISPRO 300 UNITS/3 ML VIAL SUBQ SCH ×2 (07:27→12:19)
[2021-06-19] MEDS: Aspirin Enteric Coated 81 MG Tablet PO SCH (08:09)
[2021-06-19] MEDS: *HR* Metformin 500 MG TABLET PO SCH (08:09)
[2021-06-19] MEDS: Neosporin OINT 15 GM TUBE TP SCH (08:10)
== END 2021-06-19 13:00 | disposition home health service (06) | DRG 641 ==
LOC: INPPIK 18:04
PROVIDERS: ADMIT Internal Medicine; ATTEND Internal Medicine

== ENCOUNTER 2021-07-09 18:49 | Inpatient (IN) ==
[2021-07-09] MEDS ORDERED: *HR* Dextrose 50 % in Water (Syg) 50 ML SYRINGE IVP PRN (18:57)
[2021-07-09] MEDS ORDERED: D5% in Water 1,000 ML IVC PRN (18:57)
[2021-07-09] MEDS ORDERED: Dextrose Gel 15 GM/37.5 ML TUBE PO PRN ×2 (18:57)
[2021-07-09] MEDS: Insulin LISPRO 300 UNITS/3 ML VIAL SUBQ SCH (23:05)
[2021-07-10 07:27] LABS: Basophils # 0.1 K/mcL (0.0-0.2); Basophils % 0.9 %; Eosinophils # 0.2 K/mcL (0.0-0.6); Eosinophils % 3.7 %; Hematocrit 31.5 % (37.5-50.1); Hemoglobin 10.3 g/dL (12.9-16.9); Immature Granulocytes % 0.4 % (0-4); Lymphocytes # 1.4 K/mcL (0.6-4.6); Lymphocytes % 26.1 %; Mean Corpuscular HGB Conc 32.7 g/dL (31.6-35.5); Mean Corpuscular Hemoglobin 27.7 pg (28.0-33.3); Mean Corpuscular Volume 84.7 fL (83.0-100.0); Monocytes # 0.6 K/mcL (0.0-1.3); Monocytes % 11.9 %; Neutrophils # 3.1 K/mcL (1.6-8.9); Platelet Count 366 K/mcL (140-400); Red Blood Count 3.72 M/mcL (4.19-5.50); Red Cell Distribution Width 15.5 % (11.5-14.5); White Blood Count 5.4 K/mcL (4.3-11.1)
[2021-07-10 07:46] LABS: BUN/Creatinine Ratio 29 (6-26); Blood Urea Nitrogen 21 mg/dL (8-23); Calcium 8.9 mg/dL (8.6-10.3); Carbon Dioxide 32 mEq/L (23-29); Chloride 96 mEq/L (98-107); Glucose 114 mg/dL (70-105); Osmolality,Calculated 280 (280-300); Potassium 3.8 mEq/L (3.5-5.1); Sodium 133 mEq/L (136-145); eGFR For African Americans > 60 (> 60); eGFR For Non-African Americans > 60 (> 60)
[2021-07-10] MEDS: Insulin LISPRO 300 UNITS/3 ML VIAL SUBQ SCH ×4 (08:06→20:05)
[2021-07-10] MEDS: *HR* Metformin 500 MG TABLET PO SCH (08:09)
[2021-07-10] MEDS: Aspirin Enteric Coated 81 MG Tablet PO SCH (08:09)
[2021-07-10] MEDS: *HR* Glimepiride 2 MG TABLET PO SCH (08:09)
[2021-07-11] MEDS: *HR* Enoxaparin 40 MG/0.4 ML SYRINGE SQ SCH (05:20)
[2021-07-11] MEDS: Insulin LISPRO 300 UNITS/3 ML VIAL SUBQ SCH ×4 (09:17→20:57)
[2021-07-11] MEDS: Aspirin Enteric Coated 81 MG Tablet PO SCH (09:18)
[2021-07-11] MEDS: *HR* Metformin 500 MG TABLET PO SCH (09:19)
[2021-07-11] MEDS: *HR* Glimepiride 2 MG TABLET PO SCH (09:20)
[2021-07-12] MEDS: *HR* Enoxaparin 40 MG/0.4 ML SYRINGE SQ SCH (06:00)
[2021-07-12] MEDS: Aspirin Enteric Coated 81 MG Tablet PO SCH (08:23)
[2021-07-12] MEDS: *HR* Glimepiride 2 MG TABLET PO SCH (08:25)
[2021-07-12] MEDS: *HR* Metformin 500 MG TABLET PO SCH (08:25)
[2021-07-12] MEDS: Insulin LISPRO 300 UNITS/3 ML VIAL SUBQ SCH ×4 (08:26→20:45)
[2021-07-13] MEDS: *HR* Enoxaparin 40 MG/0.4 ML SYRINGE SQ SCH (06:18)
[2021-07-13] MEDS: Insulin LISPRO 300 UNITS/3 ML VIAL SUBQ SCH ×4 (07:38→19:42)
[2021-07-13] MEDS: Aspirin Enteric Coated 81 MG Tablet PO SCH (07:56)
[2021-07-13] MEDS: *HR* Metformin 500 MG TABLET PO SCH (07:56)
[2021-07-13] MEDS: *HR* Glimepiride 2 MG TABLET PO SCH (07:57)
[2021-07-14] MEDS: *HR* Enoxaparin 40 MG/0.4 ML SYRINGE SQ SCH (05:27)
[2021-07-14] MEDS: *HR* Glimepiride 2 MG TABLET PO SCH (09:12)
[2021-07-14] MEDS: Aspirin Enteric Coated 81 MG Tablet PO SCH (09:12)
[2021-07-14] MEDS: *HR* Metformin 500 MG TABLET PO SCH (09:13)
[2021-07-14] MEDS: Insulin LISPRO 300 UNITS/3 ML VIAL SUBQ SCH ×4 (09:14→21:36)
[2021-07-15] MEDS: Acetaminophen 325 MG TABLET PO PRN (00:40)
[2021-07-15] MEDS: *HR* Enoxaparin 40 MG/0.4 ML SYRINGE SQ SCH (05:29)
[2021-07-15] MEDS: *HR* Metformin 500 MG TABLET PO SCH (08:13)
[2021-07-15] MEDS: Aspirin Enteric Coated 81 MG Tablet PO SCH (08:13)
[2021-07-15] MEDS: *HR* Glimepiride 2 MG TABLET PO SCH (08:14)
[2021-07-15] MEDS: Insulin LISPRO 300 UNITS/3 ML VIAL SUBQ SCH ×4 (08:14→22:21)
[2021-07-16] MEDS: *HR* Enoxaparin 40 MG/0.4 ML SYRINGE SQ SCH (05:44)
[2021-07-16] MEDS: Insulin LISPRO 300 UNITS/3 ML VIAL SUBQ SCH ×4 (09:38→20:20)
[2021-07-16] MEDS: Acetaminophen 325 MG TABLET PO PRN (09:39)
[2021-07-16] MEDS: Aspirin Enteric Coated 81 MG Tablet PO SCH (09:39)
[2021-07-16] MEDS: *HR* Glimepiride 2 MG TABLET PO SCH (09:39)
[2021-07-17] MEDS: *HR* Enoxaparin 40 MG/0.4 ML SYRINGE SQ SCH (05:58)
[2021-07-17] MEDS: Insulin LISPRO 300 UNITS/3 ML VIAL SUBQ SCH ×4 (07:42→22:38)
[2021-07-17] MEDS: Aspirin Enteric Coated 81 MG Tablet PO SCH (07:43)
[2021-07-17] MEDS: *HR* Glimepiride 2 MG TABLET PO SCH (07:43)
[2021-07-17] MEDS ORDERED: methocarbamoL 500 MG TABLET PO PRN (09:18)
[2021-07-18] MEDS: *HR* Enoxaparin 40 MG/0.4 ML SYRINGE SQ SCH (05:28)
[2021-07-18] MEDS: Insulin LISPRO 300 UNITS/3 ML VIAL SUBQ SCH ×4 (10:45→21:16)
[2021-07-18] MEDS: Aspirin Enteric Coated 81 MG Tablet PO SCH (10:47)
[2021-07-18] MEDS: *HR* Glimepiride 2 MG TABLET PO SCH (10:47)
[2021-07-18] MEDS ORDERED: Baclofen 10 MG TABLET PO PRN (14:53)
[2021-07-19] MEDS: *HR* Enoxaparin 40 MG/0.4 ML SYRINGE SQ SCH (05:20)
[2021-07-19] MEDS: Insulin LISPRO 300 UNITS/3 ML VIAL SUBQ SCH ×4 (07:13→20:02)
[2021-07-19] MEDS: *HR* Glimepiride 2 MG TABLET PO SCH (07:42)
[2021-07-19] MEDS: Aspirin Enteric Coated 81 MG Tablet PO SCH (07:42)
[2021-07-19 09:37] LABS: Basophils # 0.1 K/mcL (0.0-0.2); Basophils % 1.1 %; Eosinophils # 0.2 K/mcL (0.0-0.6); Eosinophils % 3.3 %; Hematocrit 34.9 % (37.5-50.1); Hemoglobin 11.1 g/dL (12.9-16.9); Immature Granulocytes % 0.2 % (0-4); Lymphocytes # 1.4 K/mcL (0.6-4.6); Lymphocytes % 26.3 %; Mean Corpuscular HGB Conc 31.8 g/dL (31.6-35.5); Mean Corpuscular Hemoglobin 27.7 pg (28.0-33.3); Monocytes # 0.4 K/mcL (0.0-1.3); Monocytes % 7.4 %; Neutrophils # 3.3 K/mcL (1.6-8.9); Platelet Count 447 K/mcL (140-400); Red Blood Count 4.01 M/mcL (4.19-5.50); Red Cell Distribution Width 16.3 % (11.5-14.5); Segmented Neutrophils % 61.7 %; White Blood Count 5.4 K/mcL (4.3-11.1)
[2021-07-19 09:59] LABS: Alanine Aminotransferase 18 Units/L (7-52); Albumin 3.4 g/dL (3.5-5.7); Alkaline Phosphatase 92 Units/L (34-104); Aspartate Amino Transferase 20 Units/L (13-39); BUN/Creatinine Ratio 30 (6-26); Bilirubin,Total 0.3 mg/dL (0.3-1.0); Blood Urea Nitrogen 24 mg/dL (8-23); Calcium 9.1 mg/dL (8.6-10.3); Carbon Dioxide 34 mEq/L (23-29); Chloride 97 mEq/L (98-107); Globulin 3.4 g/dL (2.4-3.5); Glucose 134 mg/dL (70-105); Osmolality,Calculated 286 (280-300); Sodium 135 mEq/L (136-145); Total Protein 6.8 g/dL (6.4-8.9); eGFR For African Americans > 60 (> 60); eGFR For Non-African Americans > 60 (> 60)
[2021-07-19] MEDS: Baclofen 10 MG TABLET PO SCH ×2 (15:21→20:01)
[2021-07-19 20:06] LABS: C-Reactive Protein < 5 mg/L (Less than 10)
[2021-07-20] MEDS: *HR* Enoxaparin 40 MG/0.4 ML SYRINGE SQ SCH (06:43)
[2021-07-20] MEDS: Aspirin Enteric Coated 81 MG Tablet PO SCH (11:24)
[2021-07-20] MEDS: Insulin LISPRO 300 UNITS/3 ML VIAL SUBQ SCH ×4 (11:25→20:53)
[2021-07-20] MEDS: Baclofen 10 MG TABLET PO SCH ×3 (11:29→20:52)
[2021-07-20] MEDS: *HR* Glimepiride 2 MG TABLET PO SCH (11:32)
[2021-07-21] MEDS: *HR* Enoxaparin 40 MG/0.4 ML SYRINGE SQ SCH (05:50)
[2021-07-21] MEDS: *HR* Glimepiride 2 MG TABLET PO SCH (08:22)
[2021-07-21] MEDS: Aspirin Enteric Coated 81 MG Tablet PO SCH (08:22)
[2021-07-21] MEDS: Insulin LISPRO 300 UNITS/3 ML VIAL SUBQ SCH ×4 (08:22→21:11)
[2021-07-21] MEDS: Baclofen 10 MG TABLET PO SCH ×3 (08:23→21:11)
[2021-07-22] MEDS: *HR* Enoxaparin 40 MG/0.4 ML SYRINGE SQ SCH (05:19)
[2021-07-22] MEDS: Insulin LISPRO 300 UNITS/3 ML VIAL SUBQ SCH ×4 (07:06→20:08)
[2021-07-22] MEDS: *HR* Glimepiride 2 MG TABLET PO SCH (07:45)
[2021-07-22] MEDS: Baclofen 10 MG TABLET PO SCH ×3 (07:46→21:10)
[2021-07-22] MEDS: Aspirin Enteric Coated 81 MG Tablet PO SCH (07:46)
[2021-07-23] MEDS: *HR* Enoxaparin 40 MG/0.4 ML SYRINGE SQ SCH (05:39)
[2021-07-23] MEDS: Insulin LISPRO 300 UNITS/3 ML VIAL SUBQ SCH ×4 (07:17→21:29)
[2021-07-23] MEDS: Aspirin Enteric Coated 81 MG Tablet PO SCH (10:02)
[2021-07-23] MEDS: Baclofen 10 MG TABLET PO SCH ×3 (10:03→21:30)
[2021-07-23] MEDS: *HR* Glimepiride 2 MG TABLET PO SCH (10:04)
[2021-07-24] MEDS: *HR* Enoxaparin 40 MG/0.4 ML SYRINGE SQ SCH (06:07)
[2021-07-24] MEDS: Insulin LISPRO 300 UNITS/3 ML VIAL SUBQ SCH ×4 (07:56→19:50)
[2021-07-24] MEDS: *HR* Glimepiride 2 MG TABLET PO SCH (08:01)
[2021-07-24] MEDS: Aspirin Enteric Coated 81 MG Tablet PO SCH (08:01)
[2021-07-24] MEDS: Baclofen 10 MG TABLET PO SCH ×3 (08:01→19:49)
[2021-07-24] MEDS: Acetaminophen 325 MG TABLET PO PRN ×2 (08:02→19:49)
[2021-07-24 08:21] LABS: Basophils % 0.8 %; Eosinophils % 0.2 %; Hematocrit 32.9 % (37.5-50.1); Hemoglobin 10.8 g/dL (12.9-16.9); Immature Granulocytes % 0.2 % (0-4); Lymphocytes # 0.8 K/mcL (0.6-4.6); Lymphocytes % 16.3 %; Mean Corpuscular HGB Conc 32.8 g/dL (31.6-35.5); Mean Corpuscular Hemoglobin 27.7 pg (28.0-33.3); Mean Corpuscular Volume 84.4 fL (83.0-100.0); Monocytes # 0.9 K/mcL (0.0-1.3); Monocytes % 18.8 %; Platelet Count 342 K/mcL (140-400); Red Cell Distribution Width 17.2 % (11.5-14.5); Segmented Neutrophils % 63.7 %; White Blood Count 4.7 K/mcL (4.3-11.1)
[2021-07-24 08:45] LABS: BUN/Creatinine Ratio 22 (6-26); Blood Urea Nitrogen 19 mg/dL (8-23); Calcium 8.8 mg/dL (8.6-10.3); Carbon Dioxide 31 mEq/L (23-29); Chloride 95 mEq/L (98-107); Glucose 88 mg/dL (70-105); Osmolality,Calculated 276 (280-300); Potassium 3.8 mEq/L (3.5-5.1); Sodium 132 mEq/L (136-145); eGFR For African Americans > 60 (> 60); eGFR For Non-African Americans > 60 (> 60)
[2021-07-24 10:11] LABS: Platelet Estimate Normal (Normal)
[2021-07-25] MEDS: *HR* Enoxaparin 40 MG/0.4 ML SYRINGE SQ SCH (06:48)
[2021-07-25] MEDS: Insulin LISPRO 300 UNITS/3 ML VIAL SUBQ SCH ×4 (07:36→22:22)
[2021-07-25] MEDS: Aspirin Enteric Coated 81 MG Tablet PO SCH (08:47)
[2021-07-25] MEDS: Baclofen 10 MG TABLET PO SCH ×3 (08:47→22:28)
[2021-07-25] MEDS: *HR* Glimepiride 2 MG TABLET PO SCH (08:47)
[2021-07-25 09:11] LABS: Basophils % 0.5 %; Hemoglobin 11.3 g/dL (12.9-16.9); Immature Granulocytes % 0.2 % (0-4); Lymphocytes # 1.2 K/mcL (0.6-4.6); Lymphocytes % 26.3 %; Mean Corpuscular HGB Conc 32.3 g/dL (31.6-35.5); Mean Corpuscular Hemoglobin 27.9 pg (28.0-33.3); Mean Corpuscular Volume 86.4 fL (83.0-100.0); Mean Platelet Volume 10.1 fL (9.4-12.4); Monocytes # 0.7 K/mcL (0.0-1.3); Monocytes % 16.7 %; Neutrophils # 2.5 K/mcL (1.6-8.9); Platelet Count 319 K/mcL (140-400); Red Blood Count 4.05 M/mcL (4.19-5.50); Red Cell Distribution Width 17.4 % (11.5-14.5); Segmented Neutrophils % 56.3 %; White Blood Count 4.4 K/mcL (4.3-11.1)
[2021-07-25 09:26] LABS: BUN/Creatinine Ratio 28 (6-26); Blood Urea Nitrogen 27 mg/dL (8-23); Calcium 8.5 mg/dL (8.6-10.3); Carbon Dioxide 34 mEq/L (23-29); Chloride 95 mEq/L (98-107); Glucose 88 mg/dL (70-105); Osmolality,Calculated 281 (280-300); Potassium 3.9 mEq/L (3.5-5.1); Sodium 133 mEq/L (136-145); eGFR For African Americans > 60 (> 60); eGFR For Non-African Americans > 60 (> 60)
[2021-07-25 11:14] LABS: Adenovirus Not Detected (Not Detect); Coronavirus 229E Not Detected (Not Detect); Coronavirus HKU1 Not Detected (Not Detect); Coronavirus NL63 Not Detected (Not Detect); Coronavirus OC43 Not Detected (Not Detect)
[2021-07-25 11:15] LABS: Bordetella Pertussis Not Detected (Not Detect); Chlamydophila pneumoniae Not Detected (Not Detect); Human Metapneumovirus Not Detected (Not Detect); Human Rhinovirus/Enterovirus Not Detected (Not Detect); Influenza A Subtype 2009 H1 Not Detected (Not Detect); Influenza B Not Detected (Not Detect); Mycoplasma pneumoniae Not Detected (Not Detect); Parainfluenza Virus 1 Not Detected (Not Detect); Parainfluenza Virus 2 Not Detected (Not Detect); Parainfluenza Virus 3 Not Detected (Not Detect); Parainfluenza Virus 4 Not Detected (Not Detect); Respiratory Syncytial Virus Not Detected (Not Detect); SARS-CoV-2 DETECTED (Not Detect)
[2021-07-25] MEDS ORDERED: Ondansetron ODT 4 MG TAB.RAPDIS SL PRN (11:36)
[2021-07-25] MEDS ORDERED: Benzonatate 100 MG CAPSULE PO PRN (11:36)
[2021-07-26] MEDS: *HR* Enoxaparin 40 MG/0.4 ML SYRINGE SQ SCH (06:08)
[2021-07-26] MEDS: Insulin LISPRO 300 UNITS/3 ML VIAL SUBQ SCH ×4 (07:41→20:56)
[2021-07-26] MEDS: *HR* Glimepiride 2 MG TABLET PO SCH (09:11)
[2021-07-26] MEDS: Aspirin Enteric Coated 81 MG Tablet PO SCH (09:12)
[2021-07-26] MEDS: Baclofen 10 MG TABLET PO SCH ×3 (09:12→20:55)
[2021-07-26] MEDS: 0.9 % Sodium Chloride 1,000 ML IVC SCH (18:00)
[2021-07-26 18:06] LABS: Acinetobacter baumannii by PCR Not Detected (Not Detect); Candida albicans by PCR Not Detected (Not Detect); Candida glabrata by PCR Not Detected (Not Detect); Candida krusei by PCR Not Detected (Not Detect); Candida parapsilosis by PCR Not Detected (Not Detect); Candida tropicalis by PCR Not Detected (Not Detect); Enterobacter cloacae Cmplx PCR Not Detected (Not Detect); Enterobacteriaceae by PCR Not Detected (Not Detect); Enterococcus by PCR Not Detected (Not Detect); Escherichia coli by PCR Not Detected (Not Detect); Klebsiella oxytoca by PCR Not Detected (Not Detect); Klebsiella pneumoniae by PCR Not Detected (Not Detect); Proteus by PCR Not Detected (Not Detect); Pseudomonas aeruginosa by PCR Not Detected (Not Detect); Serratia marcescens by PCR Not Detected (Not Detect); Staphylococcus aureus by PCR Not Detected (Not Detect); Staphylococcus by PCR DETECTED (Not Detect); Streptococcus agalactiae(B)PCR Not Detected (Not Detect); Streptococcus by PCR Not Detected (Not Detect); Streptococcus pneumoniae PCR Not Detected (Not Detect); Streptococcus pyogenes (A) PCR Not Detected (Not Detect); mecA Methicillin-Resist Gene DETECTED (Not Detect)
[2021-07-27] MEDS: 0.9 % Sodium Chloride 1,000 ML IVC SCH (05:44)
[2021-07-27] MEDS: *HR* Enoxaparin 40 MG/0.4 ML SYRINGE SQ SCH (05:45)
[2021-07-27] MEDS: Aspirin Enteric Coated 81 MG Tablet PO SCH (08:35)
[2021-07-27] MEDS: *HR* Glimepiride 2 MG TABLET PO SCH (08:35)
[2021-07-27] MEDS: Insulin LISPRO 300 UNITS/3 ML VIAL SUBQ SCH ×4 (08:36→21:33)
[2021-07-27] MEDS: Baclofen 10 MG TABLET PO SCH ×3 (08:39→22:53)
[2021-07-27 09:57] LABS: Basophils % 0.3 %; Eosinophils % 1.3 %; Hematocrit 34.1 % (37.5-50.1); Immature Granulocytes % 0.3 % (0-4); Lymphocytes # 1.2 K/mcL (0.6-4.6); Lymphocytes % 38.4 %; Mean Corpuscular HGB Conc 32.3 g/dL (31.6-35.5); Mean Corpuscular Hemoglobin 28.1 pg (28.0-33.3); Mean Platelet Volume 10.4 fL (9.4-12.4); Monocytes # 0.4 K/mcL (0.0-1.3); Monocytes % 11.6 %; Platelet Count 261 K/mcL (140-400); Red Blood Count 3.92 M/mcL (4.19-5.50); Red Cell Distribution Width 16.9 % (11.5-14.5); Segmented Neutrophils % 48.1 %
[2021-07-27 10:13] LABS: Neutrophils # 1.4 K/mcL (1.6-8.9)
[2021-07-27 10:20] LABS: BUN/Creatinine Ratio 26 (6-26); Blood Urea Nitrogen 22 mg/dL (8-23); Calcium 8.5 mg/dL (8.6-10.3); Carbon Dioxide 32 mEq/L (23-29); Chloride 101 mEq/L (98-107); Glucose 130 mg/dL (70-105); Osmolality,Calculated 289 (280-300); Potassium 3.8 mEq/L (3.5-5.1); Sodium 137 mEq/L (136-145); eGFR For African Americans > 60 (> 60); eGFR For Non-African Americans > 60 (> 60)
[2021-07-28] MEDS: *HR* Enoxaparin 40 MG/0.4 ML SYRINGE SQ SCH (06:56)
[2021-07-28] MEDS: Insulin LISPRO 300 UNITS/3 ML VIAL SUBQ SCH ×4 (08:51→22:34)
[2021-07-28] MEDS: *HR* Glimepiride 2 MG TABLET PO SCH (09:29)
[2021-07-28] MEDS: Aspirin Enteric Coated 81 MG Tablet PO SCH (09:29)
[2021-07-28] MEDS: Baclofen 10 MG TABLET PO SCH ×3 (09:29→22:34)
[2021-07-29] MEDS: *HR* Enoxaparin 40 MG/0.4 ML SYRINGE SQ SCH (06:32)
[2021-07-29 09:12] LABS: Basophils % 0.7 %; Eosinophils # 0.1 K/mcL (0.0-0.6); Hematocrit 31.1 % (37.5-50.1); Hemoglobin 10.2 g/dL (12.9-16.9); Immature Granulocytes % 0.3 % (0-4); Lymphocytes # 1.2 K/mcL (0.6-4.6); Lymphocytes % 41.2 %; Mean Corpuscular HGB Conc 32.8 g/dL (31.6-35.5); Mean Corpuscular Volume 85.4 fL (83.0-100.0); Mean Platelet Volume 10.4 fL (9.4-12.4); Monocytes # 0.5 K/mcL (0.0-1.3); Monocytes % 15.9 %; Neutrophils # 1.2 K/mcL (1.6-8.9); Platelet Count 218 K/mcL (140-400); Red Blood Count 3.64 M/mcL (4.19-5.50); Red Cell Distribution Width 16.8 % (11.5-14.5); Segmented Neutrophils % 39.9 %
[2021-07-29 09:24] LABS: BUN/Creatinine Ratio 27 (6-26); Blood Urea Nitrogen 21 mg/dL (8-23); Calcium 8.7 mg/dL (8.6-10.3); Carbon Dioxide 32 mEq/L (23-29); Chloride 102 mEq/L (98-107); Glucose 88 mg/dL (70-105); Osmolality,Calculated 288 (280-300); Potassium 4.1 mEq/L (3.5-5.1); Sodium 138 mEq/L (136-145); eGFR For African Americans > 60 (> 60); eGFR For Non-African Americans > 60 (> 60)
[2021-07-29] MEDS: Insulin LISPRO 300 UNITS/3 ML VIAL SUBQ SCH ×4 (09:49→20:23)
[2021-07-29] MEDS: *HR* Glimepiride 2 MG TABLET PO SCH (09:50)
[2021-07-29] MEDS: Aspirin Enteric Coated 81 MG Tablet PO SCH (09:50)
[2021-07-29] MEDS: Baclofen 10 MG TABLET PO SCH ×3 (09:50→20:23)
[2021-07-29] MEDS: Acetaminophen 325 MG TABLET PO PRN (23:23)
[2021-07-30] MEDS: *HR* Enoxaparin 40 MG/0.4 ML SYRINGE SQ SCH (05:57)
[2021-07-30] MEDS: Aspirin Enteric Coated 81 MG Tablet PO SCH (11:11)
[2021-07-30] MEDS: Baclofen 10 MG TABLET PO SCH ×3 (11:11→20:50)
[2021-07-30] MEDS: *HR* Glimepiride 2 MG TABLET PO SCH (11:12)
[2021-07-30] MEDS: Insulin LISPRO 300 UNITS/3 ML VIAL SUBQ SCH ×4 (11:13→20:51)
[2021-07-30] MEDS: Acetaminophen 325 MG TABLET PO PRN (15:41)
[2021-07-31] MEDS: *HR* Enoxaparin 40 MG/0.4 ML SYRINGE SQ SCH (05:38)
[2021-07-31] MEDS: Aspirin Enteric Coated 81 MG Tablet PO SCH (09:12)
[2021-07-31] MEDS: *HR* Glimepiride 2 MG TABLET PO SCH (09:12)
[2021-07-31] MEDS: Baclofen 10 MG TABLET PO SCH ×3 (09:12→21:18)
[2021-07-31] MEDS: Insulin LISPRO 300 UNITS/3 ML VIAL SUBQ SCH ×4 (09:13→21:19)
[2021-07-31 11:40] LABS: Basophils % 0.3 %; Eosinophils # 0.1 K/mcL (0.0-0.6); Eosinophils % 1.3 %; Hematocrit 34.4 % (37.5-50.1); Hemoglobin 11.1 g/dL (12.9-16.9); Immature Granulocytes % 0.3 % (0-4); Lymphocytes # 0.7 K/mcL (0.6-4.6); Lymphocytes % 17.5 %; Mean Corpuscular HGB Conc 32.3 g/dL (31.6-35.5); Mean Corpuscular Hemoglobin 27.8 pg (28.0-33.3); Mean Corpuscular Volume 86.2 fL (83.0-100.0); Mean Platelet Volume 10.4 fL (9.4-12.4); Monocytes # 0.6 K/mcL (0.0-1.3); Monocytes % 15.4 %; Neutrophils # 2.5 K/mcL (1.6-8.9); Platelet Count 237 K/mcL (140-400); Red Blood Count 3.99 M/mcL (4.19-5.50); Segmented Neutrophils % 65.2 %; White Blood Count 3.9 K/mcL (4.3-11.1)
[2021-07-31 11:57] LABS: BUN/Creatinine Ratio 25 (6-26); Blood Urea Nitrogen 22 mg/dL (8-23); Calcium 8.9 mg/dL (8.6-10.3); Carbon Dioxide 31 mEq/L (23-29); Chloride 96 mEq/L (98-107); Glucose 114 mg/dL (70-105); Magnesium 1.8 mg/dL (1.6-2.6); Osmolality,Calculated 278 (280-300); Potassium 4.5 mEq/L (3.5-5.1); Sodium 132 mEq/L (136-145); eGFR For African Americans > 60 (> 60); eGFR For Non-African Americans > 60 (> 60)
[2021-07-31 21:18] LABS: Bilirubin,Urine Negative (Negative); Blood,Urine Moderate (Negative); Clarity,Urine Clear (Clear); Color,Urine Yellow (Yellow); Glucose,Urine (UA) Normal (Normal); Ketones,Urine Trace mg/dL (Negative); Leukocyte Esterase,Urine Negative (Negative); Nitrite,Urine Negative (Negative); Protein,Urine 30 mg/dL (Neg-Trace); Specific Gravity,Urine 1.025 (1.010-1.025); Urobilinogen,Urine Normal (Normal)
[2021-08-01] MEDS: *HR* Enoxaparin 40 MG/0.4 ML SYRINGE SQ SCH (05:33)
[2021-08-01] MEDS: Insulin LISPRO 300 UNITS/3 ML VIAL SUBQ SCH ×4 (11:02→22:06)
[2021-08-01] MEDS: Baclofen 10 MG TABLET PO SCH ×3 (11:03→22:30)
[2021-08-01] MEDS: Aspirin Enteric Coated 81 MG Tablet PO SCH (11:03)
[2021-08-01] MEDS: *HR* Glimepiride 2 MG TABLET PO SCH (11:04)
[2021-08-02] MEDS: *HR* Enoxaparin 40 MG/0.4 ML SYRINGE SQ SCH (06:46)
[2021-08-02] MEDS: Baclofen 10 MG TABLET PO SCH ×3 (09:14→22:25)
[2021-08-02] MEDS: Aspirin Enteric Coated 81 MG Tablet PO SCH (09:14)
[2021-08-02] MEDS: *HR* Glimepiride 2 MG TABLET PO SCH (09:15)
[2021-08-02] MEDS: Insulin LISPRO 300 UNITS/3 ML VIAL SUBQ SCH ×4 (09:15→22:24)
[2021-08-03] MEDS: *HR* Enoxaparin 40 MG/0.4 ML SYRINGE SQ SCH (06:49)
[2021-08-03] MEDS: Aspirin Enteric Coated 81 MG Tablet PO SCH (08:35)
[2021-08-03] MEDS: Baclofen 10 MG TABLET PO SCH ×3 (08:35→19:41)
[2021-08-03] MEDS: *HR* Glimepiride 2 MG TABLET PO SCH (08:36)
[2021-08-03] MEDS: Insulin LISPRO 300 UNITS/3 ML VIAL SUBQ SCH ×4 (08:36→20:59)
[2021-08-03 14:54] LABS: Acinetobacter baumannii by PCR Not Detected (Not Detect); Candida albicans by PCR Not Detected (Not Detect); Candida glabrata by PCR Not Detected (Not Detect); Candida krusei by PCR Not Detected (Not Detect); Candida parapsilosis by PCR Not Detected (Not Detect); Candida tropicalis by PCR Not Detected (Not Detect); Enterobacter cloacae Cmplx PCR Not Detected (Not Detect); Enterobacteriaceae by PCR Not Detected (Not Detect); Enterococcus by PCR Not Detected (Not Detect); Escherichia coli by PCR Not Detected (Not Detect); Klebsiella oxytoca by PCR Not Detected (Not Detect); Klebsiella pneumoniae by PCR Not Detected (Not Detect); Proteus by PCR Not Detected (Not Detect); Pseudomonas aeruginosa by PCR Not Detected (Not Detect); Serratia marcescens by PCR Not Detected (Not Detect); Staphylococcus aureus by PCR Not Detected (Not Detect); Staphylococcus by PCR Not Detected (Not Detect); Streptococcus agalactiae(B)PCR Not Detected (Not Detect); Streptococcus by PCR Not Detected (Not Detect); Streptococcus pneumoniae PCR Not Detected (Not Detect); Streptococcus pyogenes (A) PCR Not Detected (Not Detect)
[2021-08-04] MEDS: *HR* Enoxaparin 40 MG/0.4 ML SYRINGE SQ SCH (06:16)
[2021-08-04] MEDS: Aspirin Enteric Coated 81 MG Tablet PO SCH (08:15)
[2021-08-04] MEDS: Insulin LISPRO 300 UNITS/3 ML VIAL SUBQ SCH ×4 (08:15→20:38)
[2021-08-04] MEDS: *HR* Glimepiride 2 MG TABLET PO SCH (08:15)
[2021-08-04] MEDS: Baclofen 10 MG TABLET PO SCH ×3 (08:16→19:45)
[2021-08-05] MEDS: *HR* Enoxaparin 40 MG/0.4 ML SYRINGE SQ SCH (06:13)
[2021-08-05] MEDS: Insulin LISPRO 300 UNITS/3 ML VIAL SUBQ SCH ×4 (07:55→19:47)
[2021-08-05] MEDS: *HR* Glimepiride 2 MG TABLET PO SCH (08:33)
[2021-08-05] MEDS: Aspirin Enteric Coated 81 MG Tablet PO SCH (08:33)
[2021-08-05] MEDS: Baclofen 10 MG TABLET PO SCH ×3 (08:33→19:33)
[2021-08-06] MEDS: *HR* Enoxaparin 40 MG/0.4 ML SYRINGE SQ SCH (06:27)
[2021-08-06] MEDS: Insulin LISPRO 300 UNITS/3 ML VIAL SUBQ SCH ×4 (09:31→19:49)
[2021-08-06] MEDS: Baclofen 10 MG TABLET PO SCH ×3 (09:46→19:48)
[2021-08-06] MEDS: Aspirin Enteric Coated 81 MG Tablet PO SCH (09:46)
[2021-08-06] MEDS: *HR* Glimepiride 2 MG TABLET PO SCH (09:47)
[2021-08-07] MEDS: *HR* Enoxaparin 40 MG/0.4 ML SYRINGE SQ SCH (06:38)
[2021-08-07] MEDS: Insulin LISPRO 300 UNITS/3 ML VIAL SUBQ SCH ×4 (07:47→20:53)
[2021-08-07] MEDS: *HR* Glimepiride 2 MG TABLET PO SCH (08:10)
[2021-08-07] MEDS: Baclofen 10 MG TABLET PO SCH ×3 (08:10→19:42)
[2021-08-07] MEDS: Aspirin Enteric Coated 81 MG Tablet PO SCH (08:10)
[2021-08-07 10:06] LABS: Hemoglobin 10.8 g/dL (12.9-16.9); Mean Corpuscular HGB Conc 32.7 g/dL (31.6-35.5); Mean Corpuscular Hemoglobin 27.9 pg (28.0-33.3); Mean Corpuscular Volume 85.3 fL (83.0-100.0); Mean Platelet Volume 10.5 fL (9.4-12.4); Platelet Count 330 K/mcL (140-400); Red Blood Count 3.87 M/mcL (4.19-5.50); Red Cell Distribution Width 16.1 % (11.5-14.5); White Blood Count 3.8 K/mcL (4.3-11.1)
[2021-08-07 10:17] LABS: BUN/Creatinine Ratio 24 (6-26); Blood Urea Nitrogen 17 mg/dL (8-23); Calcium 9.1 mg/dL (8.6-10.3); Carbon Dioxide 30 mEq/L (23-29); Chloride 103 mEq/L (98-107); Glucose 82 mg/dL (70-105); Osmolality,Calculated 289 (280-300); Potassium 3.8 mEq/L (3.5-5.1); Sodium 139 mEq/L (136-145); eGFR For African Americans > 60 (> 60); eGFR For Non-African Americans > 60 (> 60)
[2021-08-08] MEDS: *HR* Enoxaparin 40 MG/0.4 ML SYRINGE SQ SCH (05:25)
[2021-08-08] MEDS: Insulin LISPRO 300 UNITS/3 ML VIAL SUBQ SCH ×4 (07:32→20:49)
[2021-08-08] MEDS: Aspirin Enteric Coated 81 MG Tablet PO SCH (11:56)
[2021-08-08] MEDS: Baclofen 10 MG TABLET PO SCH ×3 (11:57→20:55)
[2021-08-08] MEDS: *HR* Glimepiride 2 MG TABLET PO SCH (11:57)
[2021-08-09] MEDS: *HR* Enoxaparin 40 MG/0.4 ML SYRINGE SQ SCH (05:58)
[2021-08-09] MEDS: Insulin LISPRO 300 UNITS/3 ML VIAL SUBQ SCH ×4 (07:47→20:51)
[2021-08-09] MEDS: Aspirin Enteric Coated 81 MG Tablet PO SCH (08:22)
[2021-08-09] MEDS: Baclofen 10 MG TABLET PO SCH ×3 (08:23→20:50)
[2021-08-09] MEDS: *HR* Glimepiride 2 MG TABLET PO SCH (08:23)
[2021-08-10] MEDS: *HR* Enoxaparin 40 MG/0.4 ML SYRINGE SQ SCH (06:01)
[2021-08-10] MEDS: Insulin LISPRO 300 UNITS/3 ML VIAL SUBQ SCH ×4 (08:09→20:22)
[2021-08-10] MEDS: Aspirin Enteric Coated 81 MG Tablet PO SCH (08:54)
[2021-08-10] MEDS: Baclofen 10 MG TABLET PO SCH ×3 (08:54→20:22)
[2021-08-10] MEDS: *HR* Glimepiride 2 MG TABLET PO SCH (08:55)
[2021-08-11] MEDS: *HR* Enoxaparin 40 MG/0.4 ML SYRINGE SQ SCH (05:31)
[2021-08-11] MEDS: Insulin LISPRO 300 UNITS/3 ML VIAL SUBQ SCH ×4 (07:34→20:36)
[2021-08-11] MEDS: Aspirin Enteric Coated 81 MG Tablet PO SCH (07:48)
[2021-08-11] MEDS: *HR* Glimepiride 2 MG TABLET PO SCH (07:48)
[2021-08-11] MEDS: Baclofen 10 MG TABLET PO SCH ×3 (07:48→20:35)
[2021-08-12] MEDS: *HR* Enoxaparin 40 MG/0.4 ML SYRINGE SQ SCH (05:31)
[2021-08-12] MEDS: Baclofen 10 MG TABLET PO SCH ×3 (08:15→22:15)
[2021-08-12] MEDS: Aspirin Enteric Coated 81 MG Tablet PO SCH (08:15)
[2021-08-12] MEDS: Insulin LISPRO 300 UNITS/3 ML VIAL SUBQ SCH ×4 (08:16→22:13)
[2021-08-12] MEDS: *HR* Glimepiride 2 MG TABLET PO SCH (08:16)
[2021-08-13] MEDS: *HR* Enoxaparin 40 MG/0.4 ML SYRINGE SQ SCH (05:13)
[2021-08-13] MEDS: Aspirin Enteric Coated 81 MG Tablet PO SCH (08:52)
[2021-08-13] MEDS: Baclofen 10 MG TABLET PO SCH ×3 (08:53→19:50)
[2021-08-13] MEDS: *HR* Glimepiride 2 MG TABLET PO SCH (08:53)
[2021-08-13] MEDS: Insulin LISPRO 300 UNITS/3 ML VIAL SUBQ SCH ×4 (08:58→20:51)
[2021-08-14] MEDS: *HR* Enoxaparin 40 MG/0.4 ML SYRINGE SQ SCH (05:14)
[2021-08-14] MEDS: Baclofen 10 MG TABLET PO SCH ×3 (08:47→20:28)
[2021-08-14] MEDS: *HR* Glimepiride 2 MG TABLET PO SCH (08:47)
[2021-08-14] MEDS: Aspirin Enteric Coated 81 MG Tablet PO SCH (08:48)
[2021-08-14] MEDS: Insulin LISPRO 300 UNITS/3 ML VIAL SUBQ SCH ×4 (08:49→21:17)
[2021-08-15] MEDS: *HR* Enoxaparin 40 MG/0.4 ML SYRINGE SQ SCH (06:10)
[2021-08-15] MEDS: Aspirin Enteric Coated 81 MG Tablet PO SCH (09:58)
[2021-08-15] MEDS: Baclofen 10 MG TABLET PO SCH ×3 (09:58→20:32)
[2021-08-15] MEDS: *HR* Glimepiride 2 MG TABLET PO SCH (09:59)
[2021-08-15] MEDS: Insulin LISPRO 300 UNITS/3 ML VIAL SUBQ SCH ×4 (10:26→20:34)
[2021-08-16] MEDS: *HR* Enoxaparin 40 MG/0.4 ML SYRINGE SQ SCH (06:06)
[2021-08-16] MEDS: Aspirin Enteric Coated 81 MG Tablet PO SCH (08:00)
[2021-08-16] MEDS: *HR* Glimepiride 2 MG TABLET PO SCH (08:01)
[2021-08-16] MEDS: Baclofen 10 MG TABLET PO SCH ×3 (08:01→20:49)
[2021-08-16] MEDS: Insulin LISPRO 300 UNITS/3 ML VIAL SUBQ SCH ×4 (08:02→20:53)
[2021-08-16] MEDS: Acetaminophen 325 MG TABLET PO PRN (20:49)
[2021-08-17] MEDS: *HR* Enoxaparin 40 MG/0.4 ML SYRINGE SQ SCH (05:24)
[2021-08-17] MEDS: Insulin LISPRO 300 UNITS/3 ML VIAL SUBQ SCH ×4 (07:53→21:26)
[2021-08-17] MEDS: *HR* Glimepiride 2 MG TABLET PO SCH (07:54)
[2021-08-17] MEDS: Aspirin Enteric Coated 81 MG Tablet PO SCH (07:54)
[2021-08-17] MEDS: Baclofen 10 MG TABLET PO SCH ×3 (07:55→21:26)
[2021-08-18] MEDS: *HR* Enoxaparin 40 MG/0.4 ML SYRINGE SQ SCH (05:58)
[2021-08-18] MEDS: Insulin LISPRO 300 UNITS/3 ML VIAL SUBQ SCH ×4 (08:09→20:22)
[2021-08-18] MEDS: Aspirin Enteric Coated 81 MG Tablet PO SCH (08:57)
[2021-08-18] MEDS: *HR* Glimepiride 2 MG TABLET PO SCH (08:57)
[2021-08-18] MEDS: Baclofen 10 MG TABLET PO SCH ×3 (08:57→20:22)
[2021-08-19] MEDS: *HR* Enoxaparin 40 MG/0.4 ML SYRINGE SQ SCH (05:31)
[2021-08-19] MEDS: Insulin LISPRO 300 UNITS/3 ML VIAL SUBQ SCH ×4 (08:39→19:35)
[2021-08-19] MEDS: Baclofen 10 MG TABLET PO SCH ×3 (09:09→19:34)
[2021-08-19] MEDS: *HR* Glimepiride 2 MG TABLET PO SCH (09:09)
[2021-08-19] MEDS: Aspirin Enteric Coated 81 MG Tablet PO SCH (09:09)
[2021-08-20] MEDS: *HR* Enoxaparin 40 MG/0.4 ML SYRINGE SQ SCH (05:45)
[2021-08-20] MEDS: Aspirin Enteric Coated 81 MG Tablet PO SCH (07:49)
[2021-08-20] MEDS: *HR* Glimepiride 2 MG TABLET PO SCH (07:49)
[2021-08-20] MEDS: Baclofen 10 MG TABLET PO SCH ×3 (07:49→22:06)
[2021-08-20] MEDS: Insulin LISPRO 300 UNITS/3 ML VIAL SUBQ SCH ×4 (08:29→22:09)
[2021-08-21] MEDS: *HR* Enoxaparin 40 MG/0.4 ML SYRINGE SQ SCH (05:18)
[2021-08-21] MEDS: Insulin LISPRO 300 UNITS/3 ML VIAL SUBQ SCH ×4 (07:58→21:28)
[2021-08-21] MEDS: Baclofen 10 MG TABLET PO SCH ×3 (08:07→20:08)
[2021-08-21] MEDS: Aspirin Enteric Coated 81 MG Tablet PO SCH (08:07)
[2021-08-21] MEDS: *HR* Glimepiride 2 MG TABLET PO SCH (08:08)
[2021-08-21 09:41] LABS: Hematocrit 34.9 % (37.5-50.1); Mean Corpuscular HGB Conc 31.5 g/dL (31.6-35.5); Mean Corpuscular Hemoglobin 27.9 pg (28.0-33.3); Mean Corpuscular Volume 88.6 fL (83.0-100.0); Platelet Count 284 K/mcL (140-400); Red Blood Count 3.94 M/mcL (4.19-5.50); Red Cell Distribution Width 17.5 % (11.5-14.5); White Blood Count 5.2 K/mcL (4.3-11.1)
[2021-08-21 10:01] LABS: BUN/Creatinine Ratio 19 (6-26); Blood Urea Nitrogen 17 mg/dL (8-23); Calcium 9.1 mg/dL (8.6-10.3); Carbon Dioxide 33 mEq/L (23-29); Chloride 101 mEq/L (98-107); Glucose 84 mg/dL (70-105); Osmolality,Calculated 289 (280-300); Potassium 3.7 mEq/L (3.5-5.1); Sodium 139 mEq/L (136-145); eGFR For African Americans > 60 (> 60); eGFR For Non-African Americans > 60 (> 60)
[2021-08-22] MEDS: *HR* Enoxaparin 40 MG/0.4 ML SYRINGE SQ SCH (05:09)
[2021-08-22] MEDS: Baclofen 10 MG TABLET PO SCH ×3 (09:25→21:35)
[2021-08-22] MEDS: *HR* Glimepiride 2 MG TABLET PO SCH (09:25)
[2021-08-22] MEDS: Aspirin Enteric Coated 81 MG Tablet PO SCH (09:31)
[2021-08-22] MEDS: Insulin LISPRO 300 UNITS/3 ML VIAL SUBQ SCH ×4 (11:40→21:32)
[2021-08-23] MEDS: *HR* Enoxaparin 40 MG/0.4 ML SYRINGE SQ SCH (06:37)
[2021-08-23 07:33] VITALS: BP 130/70; PULSE 101; RESP 20; TEMP 98; O2SAT 95
[2021-08-23] MEDS: Insulin LISPRO 300 UNITS/3 ML VIAL SUBQ SCH ×3 (07:40→16:38)
[2021-08-23] MEDS: Aspirin Enteric Coated 81 MG Tablet PO SCH (08:43)
[2021-08-23] MEDS: Baclofen 10 MG TABLET PO SCH ×2 (08:44→16:37)
[2021-08-23] MEDS: *HR* Glimepiride 2 MG TABLET PO SCH (08:45)
== END 2021-08-23 16:50 | DRG 640 ==
LOC: INPPIK 21:37
PROVIDERS: ADMIT Internal Medicine; ATTEND Internal Medicine